=== PATIENT | female | born 2000 | race Caucasian/White ===

== ENCOUNTER 2020-08-18 10:18 | Emergency (ER) | payer BC ==
[~2020-08-18] VITALS: Ht 154.9 cm; Wt 62.0 kg
[2020-08-18 11:18] LABS: BASOPHILS % (AUTO) 0 % (0-1); EOSINOPHILS % (AUTO) 3 % (1-7); LYMPHOCYTES % (AUTO) 19 % (22-44); MEAN CORPUSCULAR HEMOGLOBIN 31.6 pg (27.0-34.8); MEAN CORPUSCULAR HGB CONC 33.7 g/dL (32.4-35.8); MEAN PLATELET VOLUME 8.2 fL (7.4-10.4); MONOCYTES % (AUTO) 5 % (2-9); NEUTROPHILS % (AUTO) 73 % (42-75); PLATELET COUNT 259 x10^3/uL (130-400); RED BLOOD COUNT 4.45 x10^6/uL (3.82-5.3); RED CELL DISTRIBUTION WIDTH 13.1 % (9.6-15.2)
[2020-08-18 11:19] LABS: MD NO
--- NOTE | 2020-08-18 11:40 | NUR ---
PT AMBULATORY TO ROOM AT THIS TIME.
--- NOTE | 2020-08-18 12:11 | NUR ---
pt presents to ED with c/o uterine cramping and spotting blood since 08/16/20. pt's lmp was 04/23/20 , states she is 14 weeks . pt is a&o, resps even and unlabored, nadn. s/o at bedside. us at bedside. pt states 08/14 she saw her OB who informed her that the fetus does not have a heartbeat, pt scheduled for D&C in 4 days time. awaiting us read and dispo.
--- NOTE | 2020-08-18 12:53 | NUR ---
ALL RESULTS BACK, CHART UP FOR RECHECK. AWAITING MD AND ORDERS.
--- NOTE | 2020-08-18 13:11 | NUR ---
Joseph CALLED [phone]
[2020-08-18 14:09] VITALS: BP 99/68
--- NOTE | 2020-08-18 14:11 | NUR ---
pt given dc instructions and script, educated regarding rx for norco and zofran. consent for controlled substance prescription signed by pt and EDPA. pt a&o, resps even and unlabored, nadn. pt ambulatory to dc with steady gait accompanied by s/o.
== END 2020-08-18 14:10 | disposition home or self-care (01) ==
LOC: ED 13:01
DX: O36.4XX0 Maternal care for intrauterine death, not applicable or unspecified (principal); R10.30 Lower abdominal pain, unspecified; Z3A.09 9 weeks gestation of pregnancy
CPT/HCPCS: 36415; 76830; 84702; 85025; 86901; 99284

== ENCOUNTER 2020-08-20 14:00 | Emergency (ER) | payer BC ==
[~2020-08-20] VITALS: Ht 154.9 cm; Wt 62.0 kg
[2020-08-20 14:28] LABS: BASOPHILS % (AUTO) 0 % (0-1); EOSINOPHILS % (AUTO) 1 % (1-7); LYMPHOCYTES % (AUTO) 10 % (22-44); MEAN CORPUSCULAR HEMOGLOBIN 31.4 pg (27.0-34.8); MEAN CORPUSCULAR HGB CONC 34.1 g/dL (32.4-35.8); MEAN PLATELET VOLUME 8.1 fL (7.4-10.4); MONOCYTES % (AUTO) 4 % (2-9); NEUTROPHILS % (AUTO) 85 % (42-75); PLATELET COUNT 232 x10^3/uL (130-400); RED BLOOD COUNT 4.45 x10^6/uL (3.82-5.3); RED CELL DISTRIBUTION WIDTH 13.2 % (9.6-15.2)
[2020-08-20] MEDS ORDERED: SODIUM CHLORIDE 0.9% 1,000ML IVBOLUS ONE (14:30)
[2020-08-20] MEDS ORDERED: MORPHINE SULFATE 4 MG/ML, 1ML IVPush PRN (14:30)
[2020-08-20] MEDS ORDERED: MORPHINE SULFATE 4 MG/ML, 1ML ONE (14:35)
[2020-08-20 14:40] LABS: ALBUMIN 3.6 g/dL (3.4-5.0); ANION GAP 11 mmol/L (5-15); CHLORIDE 109 mmol/L (98-107); CREATININE 0.61 mg/dL (0.55-1.02)
--- NOTE | 2020-08-20 14:51 | NUR ---
here with suspected miscarriage (reported heavy vaginal bnleeding x 10 hours- 2-3 pads/hr). Seen [facility]gar for same 3 days ago [id number]
[2020-08-20 15:03] LABS: MD NO
--- NOTE | 2020-08-20 16:27 | NUR ---
Pain improved Rapid covid obtained-walked to lab-Dr. Fournier suspects patient to have D&C this afternoon/evening Patient updated on estimated poc
[2020-08-20 16:50] VITALS: BP 103/69
== END 2020-08-20 17:10 | disposition home or self-care (01) ==
LOC: ED 14:23
DX: O36.4XX0 Maternal care for intrauterine death, not applicable or unspecified (principal); Z20.818 Contact with and (suspected) exposure to other bacterial communicable diseases; R10.2 Pelvic and perineal pain; Z3A.20 20 weeks gestation of pregnancy
CPT/HCPCS: 36415; 80048; 82040; 84702; 85025; 86850; 86900; 87635; 96361; 96374; 99284; J2270; J7030; 99283

== ENCOUNTER 2020-08-22 12:35 | Day surgery (SDC) | payer BC ==
[~2020-08-22] VITALS: Ht 160 cm; Wt 60.6 kg
[2020-08-22 13:12] VITALS: BP 102/70
[2020-08-22] MEDS ORDERED: OXYC-302 PO (13:16)
[2020-08-22] MEDS ORDERED: HYDR-3240 PO (13:16)
[2020-08-22] MEDS ORDERED: CHLORHEXIDINE 15 ML UDC MM ONE (13:30)
[2020-08-22] MEDS ORDERED: LACTATED RINGERS 1,000 ML IV SCH (13:30)
[2020-08-22] MEDS ORDERED: OXYTOCIN 10 UNITS/ML, 1ML ONE (14:15)
[2020-08-22] MEDS ORDERED: MISOPROSTOL 200 MCG TABLET ONE (14:15)
[2020-08-22] MEDS ORDERED: METHYLERGONOVINE 0.2 MG/ML IM ONE (14:16)
[2020-08-22] MEDS ORDERED: SILVER NITRATE STICK TP ONE (14:16)
[2020-08-22] MEDS ORDERED: FENTANYL PF 250 MCG/5ML ONE (14:42)
[2020-08-22] MEDS ORDERED: MIDAZOLAM 1 MG/ML, 2ML ONE (14:42)
[2020-08-22] MEDS ORDERED: KETOROLAC 30 MG/1 ML ONE (14:44)
[2020-08-22] MEDS ORDERED: HALOPERIDOL 5 MG/ML IV PRN (15:00)
[2020-08-22] MEDS ORDERED: ACETAMINOPHEN 325 MG TABLET PO PRN (15:00)
[2020-08-22] MEDS ORDERED: morphine SULFATE 10 MG/ML, 1ML IVPush PRN (15:00)
[2020-08-22] MEDS ORDERED: PROMETHAZINE 25 MG/ML, 1ML IVPush PRN (15:00)
[2020-08-22] MEDS ORDERED: HYDROmorphone 1 MG/ML, 1ML INJ IVPush PRN (15:00)
[2020-08-22] MEDS ORDERED: MEPERIDINE/PF 25MG/0.5ML IVPush PRN (15:00)
[2020-08-22] MEDS ORDERED: OXYcodone 5 MG/5 ML ORAL.SOL UDC PO PRN (15:00)
[2020-08-22] MEDS ORDERED: SUCCINYLCHOLINE 20 MG/ML, 10ML ONE (15:40)
[2020-08-22] MEDS ORDERED: PROPOFOL 10 MG/ML, 20ML ONE (15:40)
[2020-08-22] MEDS ORDERED: ROCURONIUM 10MG/ML,5ML ONE (15:40)
[2020-08-22] MEDS ORDERED: NEOSTIGMINE 1 MG/ML, 10ML ONE (15:40)
[2020-08-22] MEDS ORDERED: ONDANSETRON 2MG/ML, 2ML ONE (15:40)
[2020-08-22] MEDS ORDERED: CEFAZOLIN 1,000 MG ONE (15:40)
[2020-08-22] MEDS ORDERED: DEXAMETHASONE 4 MG/ML, 1ML ONE (15:40)
[2020-08-22] MEDS ORDERED: GLYCOPYRROLATE 0.2MG/1ML, 5ML ONE (15:40)
[2020-08-22] MEDS ORDERED: ACETAMINOPHEN 650 MG/20.3 ML UDC ONE (15:53)
[2020-08-22] MEDS ORDERED: FENTANYL PF 100 MCG/2ML ONE (15:53)
[2020-08-22] MEDS ORDERED: OXYcodone 5 MG/5 ML ORAL.SOL UDC ONE (15:53)
[2020-08-22] MEDS: FENTANYL PF 100 MCG/2ML IV PRN ×2 (16:05→16:28)
== END 2020-08-22 18:00 | disposition home or self-care (01) ==
LOC: OUT 12:35
PROVIDERS: ATTEND Obstetrics & Gynecology
DX: O02.1 Missed abortion (principal); F17.210 Nicotine dependence, cigarettes, uncomplicated; Z79.891 Long term (current) use of opiate analgesic; Z79.899 Other long term (current) drug therapy; Z90.89 Acquired absence of other organs
CPT/HCPCS: 36415; 59820; 76998; 86850; 86900; 88305; J0330; J0690; J1100; J1885; J2250; J2405; J2590; J2704; J2710; J3010; J7120; J2210